=== PATIENT | female | born 1995 | race Caucasian/White ===

== ENCOUNTER 2017-02-04 16:33 | Inpatient (IN) ==
--- NOTE | 2017-02-04 16:28 | OB/GYN History & Physical ---
Date of Encounter: 02/04/17 Time of Encounter: 16:25 Assessment and Plan (1) 38 weeks gestation of Current visit: Yes Status: Acute admitted for delivery (2) Spontaneous onset of labor Current visit: Yes Status: Acute admitted for delivery (3) No care in current in third trimester Current visit: Yes Status: Acute patient reports care with fitter helper at home denies ultrasounds or blood work History of Present Illness Chief complaint: Spontaneous labor HPI: Ms. Mack is a 21 year old female at 38w6d with EDC of 02/12/2017 per LMP. Patient reports she has been laboring since Saturday. Patient denies LOF and VB. Patient reports +FM. Patient states she was laboring at home and the fitter helper called her 8cm dilated but the pain was to bad to stay at home. Patient denies any problems with , denies taking any medication. SVE on admission 4.5/100/-1. Past Med Surg Social Fam HX - Past Medical History Source: patient Medical history: no medical history Psychiatric history: no psych history - Past Surgical History Surgical History: no surgical history - Social History Smoking Status: Never smoker Smokeless Tobacco Status: No Current living situation: Home - Independent Activity Level: Independent ambulation Recent Out of Country Travel Within the Last 8 Weeks: No Exposure or Possible Exposure to Illness During Travel: No Obstetrical History - Pregnancies : 1 Para: 0 Term: 0 : 0 Ab's: 0 Livin Review of System OB - Constitutional Constitutional ROS IM: no chills, no fever(s), no headache(s), no night sweats - Cardiovascular Cardiovascular: no edema, no lightheadedness, no palpitations, no syncope - Respiratory Respiratory: no cough, no dyspnea - Gastrointestinal Gastrointestinal: no abdominal pain, no constipation, no diarrhea, no heartburn , no vomiting - Genitourinary Genitourinary: no abnormal vaginal bleeding, no dysuria, no flank pain, no urinary urgency, no vaginal odor, no vaginal pruritis Exam - Constitutional Constitutional: well developed, well nourished, no acute distress, average body habitus - HEENT HEENT: Normocephaly, Mucus Membranes Moist - Neck Neck exam: full ROM, supple - Lungs Respiratory exam: CTAB - Cardiovascular Cardiovascular exam: RRR, +S1, +S2 - Abdomen Abdomen: Present: bowel sounds normal, gravid, non tender - Extremities Extremities exam: full ROM, normal capillary refill, normal inspection Deep Tendon Reflex Grade: 2+ Normal - Vagina Vagina: Present: normal moisture - Cervix Dilation: 5 Effacement: 100 Station: -1 - Uterus Uterus exam: Present: normal size, normal contour - Anus/Rectum Anus/Rectum: Present: normal perianal skin - Comments Comments: FHR 135 bpm moderate variability +15x15 accels no decels noted. Contractions are 4-5 min apart. CAt. 1 tracing. Results All other labs normal.
[~2017-02-04 16:33] MED LIST: Famotidine 20 MG/2 ML VIAL IVP PRN; Naloxone 0.4 MG/ML INJ IVP PRN; Ondansetron 4 MG/2 ML VIAL IVP PRN; Ringers Solution, Lactated 1,000 ML ONE
[2017-02-04] MEDS ORDERED: Penicillin G Potassium 5,000,000 UNIT in D5% in Water (Mini-Bag+) 100 ML IVPB ONE (16:35)
[2017-02-04] MEDS ORDERED: *HR* Nalbuphine 20 MG/ML AMPUL IVP PRN (16:35)
[2017-02-04] MEDS ORDERED: Ringers Solution, Lactated 1,000 ML IVC SCH (16:45)
[2017-02-04 17:15] LABS: Basophils % 0.1 %; Eosinophils % 0.2 %; Hemoglobin 13.2 g/dL (11.5-15.4); Immature Granulocytes % 0.3 % (0-4); Lymphocytes # 1.6 K/mcL (0.6-4.6); Lymphocytes % 11.4 %; Mean Corpuscular HGB Conc 33.8 g/dL (31.6-35.5); Mean Corpuscular Hemoglobin 29.7 pg (28.0-33.3); Mean Corpuscular Volume 87.8 fL (83.0-100.0); Mean Platelet Volume 11.2 fL (9.4-12.4); Monocytes # 0.6 K/mcL (0.0-1.3); Monocytes % 4.3 %; Platelet Count 273 K/mcL (140-400); Red Blood Count 4.44 M/mcL (3.82-4.97); Red Cell Distribution Width 13.5 % (11.5-14.5); Segmented Neutrophils % 83.7 %
[2017-02-04 17:30] LABS: HIV-1&2 Antibody & p24 Ag Nonreactive (Nonreactive); Hepatitis B Surface Antigen Nonreactive (Nonreactive)
[2017-02-04] MEDS ORDERED: Epidural Premix (fent/bupiv) 110 ML EP ONE ×2 (18:16→23:11)
--- NOTE | 2017-02-04 19:15 | OB Labor Progress Note ---
Date of Encounter: 02/04/17 Time of Encounter: 19:12 Labor Progress Note - Subjective Subjective: Patient resting comfortably with Epidural in place. Discussed POC with patient. Patient denies any questions or concerns. - Cervix Cervix: 7/100/0 - Heart Tones Heart Tones: 135 bpm moderate variability +15x15 accels no decels noted. CAt. 1 tracing - [place]: 3-4 min apart - Interventions Interventions: SVE, AROM moderate amount of clear fluid. Patient tolerated well. - Plan Plan: Continue labor management.
[2017-02-04] MEDS: Penicillin G Potassium 2,500,000 UNIT in D5% in Water 100 ML IVPB SCH (21:09)
[2017-02-04] MEDS ORDERED: Epidural Premix (fent/bupiv) 110 ML EP SCH (21:15)
--- NOTE | 2017-02-04 21:15 | Anesthesia Evaluation PreOp ---
Date of Encounter: 02/04/17 Time of Encounter: 21:00 - Past History Planned Operation: JARETH Cardiac History: Denies any Significant Hx Pulmonary History: Denies Any Significant HX PHOTOGRAPHER LITHOGRAPHIC History: Denies Any Significant HX Other Medical History: Denies Any Significant HX Anesthesia History: No Prior Anesthetic Complications : Yes Test: Positive Alcohol Use: none Drug use: none Medications and Allergies Vitamins 1 tab PO DAILY 02/04/17 [History] 3 Allergy/AdvReac Type Severity Reaction Status Date / Time No Known Allergies Allergy Verified 02/04/17 17:24 - Meds/Allergy Pre-op Review Medications Reviewed: Yes Allergies Reviewed: Yes Beta Blockers on Current Med List: No Anesthesia Results - Labs 02/04/17 16:25 Anesthesia Exam Height: 63 Weight: 80 NPO (# of Hours): mn Pain Scale: 7 - HEENT Pupil (Motor): Pupils equal Mallampati: II Teeth: Normal Oral Opening: Greater than 3 - PHOTOGRAPHER LITHOGRAPHIC LOC: Oriented PHOTOGRAPHER LITHOGRAPHIC Motor: Normal RUE, Normal LUE, Normal RLE, Normal LLE, Normal Face PHOTOGRAPHER LITHOGRAPHIC Sensory: Normal: RUE, LUE, RLE, LLE, Face - Cardiac Rhythm: Regular Murmur: None - Pulmonary Breath Sounds: bilateral Clear Respiratory Effort: Symmetrical Anesthesia Assess/Plan ASA Score: 2 Modified [place] Scale for Level of Consciousness: Cooperative, oriented, and tranquil Anesthetic Plan: Regional Autologous Blood: No Monitoring Plan: Standard Monitors
--- NOTE | 2017-02-04 21:21 | Anesthesia Procedures ---
Date of Encounter: 02/04/17 Time of Encounter: 21:00 Procedures: Anesthesia - Epidural/Spinal Patient ID/Chart reviewed: Yes Patient examined: Yes OB Eval: : 1 OB Eval: Hx Para: 0 OB Eval: Dilated at (cm): 5 OB Eval: Contractions: Non-stressed pattern Consent Obtained: Yes Supplemental Oxygen: None/Room Air Site Prep: Aseptic Technique, Sterile prep and drape, Povidone-Iodine 1% Patient position: upright Local Anesthetic: Lidocaine 1% Amount of Local Anesthetic used: 3 Touhy Needle Gauge: 18 Touhy Needle Depth (cm): 4 Catheter Depth at Skin (cm): 6 Test Dose (1.5% Lido + Epi): Volume given (mls): 3 Test Dose Result: Negative Infusion Med: 0.125% Bupivacaine w/ 2 mcg/ml Fentanyl Infusion Rate (mls/hr): [address]: Tegaderm, Tape Interspace Used: L4-L5 Loss of Resistance (DIANA): Yes Blood: No CSF: No Paresthesia: No Vitals + FHT's: stable throughout see nursing notes
[2017-02-04] MEDS ORDERED: Oxytocin 20 units/ LR 1000 mL 20 UNIT/1,000 ML BAG IVC ONE (23:46)
[2017-02-05] MEDS: Penicillin G Potassium 2,500,000 UNIT in D5% in Water 100 ML IVPB SCH (01:07)
--- NOTE | 2017-02-05 03:26 | OB/GYN Procedure Note ---
Delivery - Delivery Date: 02/05/17 Provider: Catarina Arana Intrapartum events: none Delivery induction: none Delivery augmentation: rupture of membranes Delivery monitor: external FHT, external uterine Anesthesia: epidural Estimated Blood Loss: 150 - (s) Infant A Delivery Date: 02/05/17 Infant Delivery Time: 02:47 Presentation: vertex Position: EDDIE Route of delivery: Gender: Male Viability: Viable Pounds: 7 Ounces: 6 Weight Gram: 3335 kg at 1 minute: 8 at 5 mins: 9 Shoulder Dystocia: not encountered Specimens collected: cord blood Placenta: spontaneous, uterine exploration, retained Cord: 3 umbilical vessels - Repair Episiotomy: none Laceration Description: Perineal - 2nd Degree (repaired with 3-0 vicryl) - Complications Delivery complications: retained placenta - Disposition Mom disposition: stable in LDR [place] disposition: stable in LDR - Comments Comments: Called to LDR for delivery. Patient in stirrups and pushing. Under maternal effort patient spontaneously delivered a viable male over a second degree perineal laceration. No nuchal cord, meconium or shoulder dystocia was encountered. Infant was placed on maternal abdomen. Cord was clamped and cut after pulsations ceased. Cord blood was collected. A second degree laceration was repaired with 3-0 vicryl. The maternal side of placenta is intact however, pieces of the amnion were retained. The uterus was manually explored and retained pieces of amnion were removed. The uterus was firm and no active bleeding was noted. Pericare provided, all counts correct. Both mother and stable in recovery.
[2017-02-05] MEDS ORDERED: *HR* HYDROcodone/Acet 5/325 mg TABLET PO PRN (05:17)
[2017-02-05] MEDS ORDERED: Oxytocin 20 units/ LR 1000 mL 20 UNIT/1,000 ML BAG IVC SCH (05:17)
[2017-02-05] MEDS ORDERED: Ibuprofen 600 MG TABLET PO PRN (05:17)
[2017-02-05] MEDS ORDERED: Lanolin 7 G OINT...G. TP PRN (05:17)
[2017-02-05] MEDS ORDERED: Benzocaine/Menthol 56 GM AEROSOL SPRAY TP PRN (05:17)
[2017-02-05] MEDS ORDERED: Measles/Mumps/Rubella Vacc 0.5 ML VIAL SQ PRN (05:17)
[2017-02-05] MEDS ORDERED: Acetaminophen 325 MG TABLET PO PRN (05:17)
[2017-02-05] MEDS ORDERED: Oxytocin 20 units/ LR 1000 mL 20 UNIT/1,000 ML BAG IVC ONE (06:01)
[2017-02-05] MEDS: Prenatal Vit/FA 1 EACH TABLET PO SCH (09:48)
[2017-02-06 08:50] VITALS: BP 111/70
[2017-02-06] MEDS: Prenatal Vit/FA 1 EACH TABLET PO SCH (09:21)
--- NOTE | 2017-02-06 09:23 | Discharge Summary ---
Date of Encounter: 02/06/17 Time of Encounter: 09:13 - Discharge Diagnosis (1) Status post vaginal delivery Priority: Primary Status: Acute Comments: Pain well managed on po pain medication, , desires discharge (2) 38 weeks gestation of Priority: Primary Status: Resolved - Discharge Medications Prescriptions: Ibuprofen [Motrin] 600 mg PO Q6HR PRN #60 tablet PRN Reason: Cramping Docusate [Colace] 100 mg PO BID #30 capsule Home Medications: Vitamins 1 tab PO DAILY 02/04/17 [History] Docusate [Colace] 100 mg PO BID #30 capsule 02/06/17 [Rx] Ibuprofen [Motrin] 600 mg PO Q6HR PRN #60 tablet 02/06/17 [Rx] Allergies/Adverse Reactions: 3 Allergy/AdvReac Type Severity Reaction Status Date / Time No Known Allergies Allergy Verified 02/04/17 17:24 Data Procedures and tests throughout hospitalization: Laboratory Tests 02/04/17 02/04/17 02/04/17 16:25 16:25 16:25 WBC 14.4 H RBC 4.44 Hgb 13.2 Hct 39.0 MCV 87.8 MCH 29.7 MCHC 33.8 RDW 13.5 Plt Count 273 MPV 11.2 Immature Gran % 0.3 Seg Neutrophils % 83.7 Lymphocytes % 11.4 Monocytes % 4.3 Eosinophils % 0.2 Basophils % 0.1 Neutrophils # 12.0 H Lymphocytes # 1.6 Monocytes # 0.6 Eosinophils # 0.0 Basophils # 0.0 Hep Bs Antigen Nonreactive HIV Ag/Ab Combo Qual Nonreactive Blood Type O POSITIVE Antibody Screen NEGATIVE Date of admission: 02/04/17 16:33 Primary care physician: PCP NONE Consults: 02/05/17 05:17 Consult to Improvement Specialist [CONS] Routine Comment: Vaginal delivery, consult needed Discharging clinician: Gurpreet Mueller Anticipated date of discharge: 02/06/17 - Patient Status Disposition: Home, Self-Care Condition: Good Functional capacity at discharge: independent ambulation Overall status at discharge: patient is progressing back to baseline - Discharge Instructions Follow Up With: NONE,PCP [Primary Care Provider] - - Diet and Activity Activity: resume usual activities as tolerated Diet: regular diet Hospital Course Reason for admission: active labor Delivery: Episiotomy: none Laceration: 2nd degree Other procedures: none complications: none Discharge diagnosis: IUP at term delivered [place] baby: male Hospital course: Ms. Mack is a 21 year old female that was at 38w6d with EDC of 2016 per LMP. Patient reported she has been laboring since Saturday. Patient denied LOF and VB. Patient reported +FM. Patient stated she was laboring at home and the hospitality house supervisor called her 8cm dilated but the pain was too bad to stay at home. Patient denied any problems with , denied taking any medication. Patient in stirrups and pushing. Under maternal effort patient spontaneously delivered a viable male over a second degree perineal laceration. No nuchal cord, meconium or shoulder dystocia was encountered. Infant was placed on maternal abdomen. Cord was clamped and cut after pulsations ceased. Cord blood was collected. A second degree laceration was repaired with 3-0 vicryl. The maternal side of placenta is intact however, pieces of the amnion were retained. The uterus was manually explored and retained pieces of amnion were removed. The uterus was firm and no active bleeding was noted. Pericare provided , all counts correct. Both mother and stable in recovery. When seen today , patient says she is fine and in good mood. She is able to breastfeed the baby and the baby is doing well. She admits to minor abdominal cramping that has been improving since the delivery. She has some minor vaginal bleeding that has been improving. She denies any headaches, vision changes, dizziness, chest pain , shortness of breath, fever, chills, nausea, or vomiting. Patient will have a follow-up appointment scheduled with our clinic. - Delivery Date: 02/05/17 Provider: Catarina Arana Intrapartum events: none Delivery induction: none Delivery augmentation: rupture of membranes Delivery monitor: external FHT, external uterine Anesthesia: epidural Estimated Blood Loss: 150 - Infant (s) Infant A Infant Delivery Date: 02/05/17 Delivery Time: 02:47 Presentation: vertex Position: EDDIE Route of delivery: Gender: Male Viability: Viable Pounds: 7 Ounces: 6 Weight Gram: 3335 kg at 1 minute: 8 at 5 mins: 9 Shoulder Dystocia: not encountered Specimens collected: cord blood Placenta: spontaneous, uterine exploration, retained Cord: 3 umbilical vessels - Repair Episiotomy: none Laceration Description: Perineal - 2nd Degree (repaired with 3-0 vicryl) - Complications Delivery complications: retained placenta - Disposition Mom disposition: stable in LDR disposition: stable in LDR Time Attestation: Total time spent providing and/or coordinating discharge services: Time Spent: Less than 30 minutes Exam - Constitutional Vitals: Temp Pulse Resp BP Pulse Ox 98.2 F 88 14 111/70 97 02/06/17 08:50 02/06/17 08:50 02/06/17 08:50 02/06/17 08:50 02/05/17 21:00 General appearance IM: A&O X 3, no acute distress, answers questions appropriately - Respiratory Respiratory exam: Present: CTAB - Cardiovascular Cardiovascular exam IM: Present: RRR, +S1, +S2 - GI/Abdominal GI/Abdominal exam IM: normal bowel sounds, soft, tenderness (Minor tenderness to RLQ and LLQ with deep palpation. ) - Uterine Tone: Firm - Extremities Exam Extremities exam IM: Present: full ROM, normal capillary refill, normal inspection, radial pulses palpable and symmetrical. Absent: calf tenderness, pedal edema, tenderness - Neurological Exam Neurological exam: reflexes normal - Psychiatric Additional comments: reports good mood
[2017-02-06 11:24] LABS: Varicella Zoster IgG Antibody Positive
[2017-02-06 11:59] LABS: Rubella IgG Antibody NEGATIVE (POSITIVE)
== END 2017-02-06 15:00 | disposition home or self-care (01) | DRG 767 ==
LOC: 1NENULAB → 1NENUOBS 02-05 05:16
PROVIDERS: ADMIT Advanced Practice Midwife; ATTEND Advanced Practice Midwife